=== PATIENT | male | born 1985 | race Caucasian/White ===

== ENCOUNTER 2025-03-23 03:21 | Emergency (ER) | payer OTHER ==
[2025-03-23] MEDS ORDERED: Pantoprazole 40 MG VIAL ONE (03:47)
[2025-03-23 03:55] LABS: #Basophils 0.1 thou/uL (0.0-0.2); #Eosinophils 0.2 thou/uL (0.0-0.7); #Lymphocytes 1.7 thou/uL (1.20-3.40); #Monocytes 0.7 thou/uL (0.11-0.59); #Neutrophils 16.7 thou/uL (1.40-6.50); %Basophils 0.6 % (0.0-1.0); %Eosinophils 1.1 % (0.0-10.0); %Lymphocytes 8.6 % (21.0-51.0); %Monocytes 3.8 % (0.0-10.0); %Neutrophils 86.0 % (42.0-75.0); Hematocrit 43.5 % (42.0-52.0); Hemoglobin 14.7 g/dL (14.0-18.0); Mean Corpuscular Hemoglobin 25.8 pg (27.0-31.0); Mean Corpuscular Volume 76.4 fl (78.0-98.0); Platelet Count 297 10x3/uL (130-400); Red Blood Cell (RBC) Count 5.69 mill/uL (4.70-6.10); White Blood Cell (WBC) Count 19.4 10x3/uL (4.8-10.8)
[2025-03-23 04:05] LABS: ALT (SGPT) 16 U/L (Less than 45); AST (SGOT) 28 U/L (11-34); Albumin 4.5 g/dL (3.1-4.5); Alkaline Phosphatase 62 U/L (40-110); Anion Gap 24 mmol/L (10-20); BUN (Urea Nitrogen) 10 mg/dL (8.9-20.6); Bilirubin, Total 0.9 mg/dL (0.3-1.2); Calc. Creatinine Clearance 0 mL/min (70-130); Calcium 8.5 mg/dL (7.8-10.44); Carbon Dioxide 17 mmol/L (22-29); Chloride 102 mmol/L (98-107); Globulin 2.6 g/dL (2.4-3.5); Glucose 150 mg/dL (70-105); Lipase 287 U/L (8-78); Potassium 3.8 mmol/L (3.5-5.1); Sodium 139 mmol/L (136-145); Troponin I Less than 0.010 ng/mL (< 0.028)
[2025-03-23] MEDS ORDERED: Lidocaine Viscous Sol 2% 15 ml UD Cup ONE (06:48)
[2025-03-23] MEDS ORDERED: Mag-Al Plus 1200/1200/120 MG (30 mL) UDCUP ONE (06:48)
[2025-03-23] MEDS ORDERED: Iopamidol 370 76% 100 ML VIAL ONE (09:00)
== END 2025-03-23 08:13 | disposition home or self-care (01) ==
LOC: NAV ERS 03:21
DX: K29.20 Alcoholic gastritis without bleeding (principal); E11.9 Type 2 diabetes mellitus without complications; F10.129 Alcohol abuse with intoxication, unspecified; Z79.85 Long-term (current) use of injectable non-insulin antidiabetic drugs; Z87.891 Personal history of nicotine dependence; Y90.5 Blood alcohol level of 100-119 mg/100 ml
CPT/HCPCS: 71045; 74177; 80053; 80307; 83690; 84484; 85025; 93005; 96361; 96374; 96375; J2470; J2550; J7030; Q9967